=== PATIENT | male | born 1960 | race Caucasian/White ===

== ENCOUNTER 2019-05-22 06:39 | Inpatient (IN) ==
--- NOTE | 2019-05-01 15:57 | PAT Medication Instructions ---
Medication Instructions Date of Service May 01, 2019 Home Medications glucos sul 6MPo-ptq-zbokg-C-Mn 1 tab PO QAM magnesium oxide,aspartate,citr 250 mg PO QAM naksvmceohux-fbr-ieda-FA-vit K 1 tab PO QAM naproxen sodium [Aleve] 220 mg PO BID PRN vitamin B complex 1 cap PO DAILY ASK your surgeon for instructions naproxen sodium [Aleve] 220 mg PO BID PRN STOP taking 2 weeks before surgery (or as soon as possible if surgery is within 2 weeks) glucos sul 3JGn-ama-loyfb-C-Mn 1 tab PO QAM DO NOT take the morning of surgery magnesium oxide,aspartate,citr 250 mg PO QAM rhnxxnyehwyk-hjo-imhs-FA-vit K 1 tab PO QAM vitamin B complex 1 cap PO DAILY Other Notes If you have any questions please call us at [phone] or [phone] or [phone] or [phone]
--- NOTE | 2019-05-02 14:21 | Anesthesiology Consultation ---
Date of Service May 02, 2019 Assessment & Plan (1) Encounter for pre-operative examination: Chart Review Chart Review: Pending: Refer to Additional Notes / Consult section (pending preop testing (labs, EKG, CXR)) and Patient seen in Pre Admission Testing Teaching & Discussion Pre-Anesthesia Teaching/Discussion Notes: Instructed NPO after midnight before surgery,except medications with 15 cc of water. Medication instructions provide d according to the PAT guidelines. History Surgery Operation Date: 05/22/19 09:45 Proposed Procedures p Robotic Assisted Laparoscopic Radical Retropubic Prostatectomy, Possible Open, Possible Pelvic Lymph Node Dissection - Mayur Keating MD Height/Weight Height: 6 ft Weight: 102.1 kg Allergies Allergy/AdvReac Type Severity Reaction Status Date / Time Penicillins Allergy Unknown hives Verified 04/30/19 08:48 tetracycline Allergy Unknown hives Verified 04/30/19 08:48 Medications Home Medications Medication Instructions Recorded Confirmed Last Taken glucos sul 2PTu-spz-jtpqh-C-Mn 1 tab PO QAM 04/20/19 04/30/19 Unknown magnesium oxide,aspartate,citr 250 mg PO QAM 04/20/19 04/30/19 Unknown eqzugzdboree-lcv-shjk-FA-vit K 1 tab PO QAM 04/20/19 04/30/19 Unknown naproxen sodium [Aleve] 220 mg PO BID PRN 04/30/19 04/30/19 Unknown vitamin B complex 1 cap PO DAILY 04/30/19 04/30/19 Unknown Past Medical History Medical History Prostate ca Arthritis Exercise / Class Metabolic Activity II 4-5 Yardwork/Stairs/Walk up hill Past Family History Family History Uncle Prostate cancer Heart disease Father Prostate cancer Brother Prostate cancer Brother Diabetes Unknown Colon cancer Past Surgical History Surgical History S/P rotator cuff repair RIGHT X 2 S/P wisdom tooth extraction S/P sinus surgery Hx of hand surgery TORN TENDON - LEFT HAND Past Anesthesia History No Family Hx of Anesthesia Complications and Other "Slow to wake" with prior surgery. No known hx reintubation. History of PONV No Hx of PONV and No Hx of Motion Sickness Social History Smoking Status: Never smoker Do You Dip or Chew Tobacco: No Hx Alcohol Use: Yes Alcohol type: beer alcohol intake frequency: a few times a month Hx Substance Use: No substance use type: does not use Review of Systems Patient denies chest pain, shortness of breath, dyspnea on exertion, reflux, cough, wheezing, palpitations. Physical Exam Vital Signs VITALS BP 128/76 P 69 TEMP 98.5 SP02 96%RA RESP 18 PHYSICAL Full neck and c-spine range of motion. Full TMJ range of motion. TMD 3 finger breaths Mallampati Score 2 Dentition: intact, crowns on molars, upper front "repaired" tooth Lungs: clear throughout to auscultation Cardiac: regular rate and rhythm, no murmurs noted Spine: normal Carotid arteries: negative bruit Extremities: no edema
[2019-05-02 15:24] LABS: Basophils # (auto) 0.02 K/uL (0-0.2); Basophils % (auto) 0.2 %; Eosinophils # (auto) 0.13 K/uL (0-0.5); Eosinophils % (auto) 1.5 %; Hematocrit (blood only) 43.8 % (42-52); Hemoglobin 15.6 g/dL (14.0-18.0); Immature Granulocytes # (auto) 0.01 K/uL (0.00-0.02); Immature Granulocytes % (auto) 0.1 %; Lymphocytes # (auto) 1.87 K/uL (1.2-3.4); Lymphocytes % (auto) 21.8 %; Mean Corpuscular Hemoglobin 33.3 pg (25-34); Mean Corpuscular Hgb Conc 35.6 g/dL (32-36); Mean Corpuscular Volume 93.4 fL (80-100); Mean Platelet Volume 10.2 fL (7.4-10.4); Monocytes # (auto) 0.67 K/uL (0.11-0.59); Monocytes % (auto) 7.8 %; Neutrophils # (auto) 5.87 K/uL (1.4-6.5); Neutrophils % (auto) 68.6 %; Platelet Count 267 K/uL (130-400); RDW Coefficient of Variation 12.5 % (11.5-14.5); RDW Standard Deviation 42.5 fL (36.4-46.3); Red Blood Count 4.69 M/uL (4.7-6.1); White Blood Count 8.57 K/uL (4.8-10.8)
[2019-05-02 15:31] LABS: BUN Creatinine Ratio 23.5 (10-20); Calcium 8.6 mg/dl (8.5-10.1); Creatinine Clr Calc Pharmacy 79.7 ml/min; Est GFR (Non-African American) 62.2; Potassium 4.3 mmol/L (3.5-5.1)
--- NOTE | 2019-05-02 16:03 | XRay Report ---
XR chest Pre-admission PA/Lat CLINICAL HISTORY: 58 years-old Male presenting with preoperative assessment. TECHNIQUE: PA and lateral views of the chest were obtained. COMPARISON: None. FINDINGS: Cardiac silhouette top normal in size. Lungs and pleural spaces clear. Degenerative changes of the th oracic spine. Upper abdomen normal. IMPRESSION: 1. Borderline cardiomegaly. No other convincing evidence of acute cardiopulmonary disease. Electronically signed by: Delroy Phillips M.D. 05/02/2019 4:01 PM
[~2019-05-22 06:39] MED LIST: CEFAZOLIN 2000MG 2,000 MG/15 ML SYR IV SCH; CLINDAMYCIN 900 MG / 50ML D5W IV SCH; HEPARIN SOD 5,000 UNIT/0.5 ML VIAL SC SCH; LR 15ML/HR IV SCH; [UNRECOGNIZED DRUG - REMARK] SCH
[2019-05-22] MEDS ORDERED: ONDANSETRON INJ 2 MG/ML 2 ML VIAL ONE (06:59)
[2019-05-22] MEDS ORDERED: fentaNYL citrate 100 MCG/2 ML VIAL ONE ×2 (06:59→10:31)
[2019-05-22] MEDS ORDERED: PROPOFOL IV EMULSION 10 MG/ML 20 ML VIAL IV ONE (06:59)
[2019-05-22] MEDS ORDERED: ROCURONIUM BROMIDE 10 MG/ML 5 ML VIAL ONE ×5 (06:59→10:56)
[2019-05-22] MEDS ORDERED: MIDAZOLAM HCL 1 MG/ML 2ML VIAL ONE (06:59)
[2019-05-22] MEDS ORDERED: LARYING-O-JET KIT (LTA) ONE (06:59)
[2019-05-22] MEDS ORDERED: LIDOCAINE HCL 2% 2 ML VIAL/AMP(20MG/ML) INFIL ONE (06:59)
--- NOTE | 2019-05-22 07:12 | History & Physical Bridge Note ---
Date of Service May 22, 2019 History & Physical Bridge Note I have examined the patient, reviewed the History & Physical and in the interval since the performance of the History & Physical I have noted the following changes of clinical significance: no changes noted
[2019-05-22] MEDS ORDERED: BUPIVACAINE 0.5 % 5 MG/1 ML MPF 30ML VIAL ONE (08:36)
[2019-05-22] MEDS ORDERED: ONDANSETRON INJ 2 MG/ML 2 ML VIAL IV PRN ×2 (08:42→13:36)
[2019-05-22] MEDS ORDERED: HYDROmorphone INJ 1 MG/ML SYRINGE IV PRN (08:42)
[2019-05-22] MEDS ORDERED: ePHEDrine sulfate 50 MG/ML AMP IV PRN (08:42)
[2019-05-22] MEDS ORDERED: ATROPINE SULFATE 0.1 MG/ML 10ML SYR IV PRN (08:42)
[2019-05-22] MEDS ORDERED: BELLADONNA/OPIUM SUPP 60 MG SUPP PR ONE ×2 (09:07→10:09)
[2019-05-22] MEDS ORDERED: ACETAMINOPHEN 1000 MG/100 ML IV IV ONE (09:09)
[2019-05-22] MEDS ORDERED: HYDROmorphone INJ 2 MG/ML SYR/VIAL ONE (09:35)
[2019-05-22] MEDS ORDERED: FLOSEAL HEMOSTATIC MATRIX 10ML TOP ONE (11:40)
--- NOTE | 2019-05-22 12:17 | Operative Report ---
PG Post Operative Report Pre & Post Diagnosis Operation Date: 05/22/19 08:05 Pre-Op Diagnosis: Prostate Cancer Post-Op Diagnosis: Prostate Cancer I identified the patient and participated in the time-out.: Yes Procedure Operation Date: 05/22/19 08:05 Actual Procedures p Robotic Assisted Laparoscopic Radical Retropubic Prostatectomy, Bilateral Pelvic Lymph Node Dissection(Not Applicable) - Mayur Keating MD Surgeon Malcolm Keating MD Director Employment Dorene Mccollum Estimated Blood Loss 150 Findings Consistent with Post-Op Diagnosis Specimens 1. Prostate and seminal vesicles 2. Periprostatic fat 3. Left pelvic lymph nodes 4. Right pelvic lymph nodes Description of Procedure The patient was identified in the preoperative holding area, appropriate informed consents were reviewed and completed, and he was transported to the operating suite. Subcutaneous heparin was administered in the pre-operative ho lding area. Upon arrival in the operating suite, he received appropriate antibiotics and general anesthesia. He was positioned in dorsal lithotomy, a B&O suppository was inserted after digital rectal exam, and he was prepped and draped in standard fashion. A Carter catheter was inserted in the sterile field. A Veress needle was passed per umbilicus with uniform insufflation of the abdomen to 15mmHg. He was placed in steep Trendelenburg position. A periumbilical incision was then made to accommodate a 12mm Visiport with 10mm 0degree laparoscope. Inspection of the abdomen was carried out, and there was no evidence of traumatic entry or injury secondary to the Veress needle. After confirming a clear anterior abdominal wall, ports were subsequently placed in standard robotic prostatectomy fashion without incident. To begin the robotic portion of the case, the left lateral aspect of the sigmoid was mobilized off of the left pelvic side wall to allow the pouch of Aristides to be appropriately visualized. He additionally had significant adhesive disease in the right lateral pelvic wall. I was able to gently dissect around the cecum without visualization of the appendix. It appeared that he had a walled off, old phlegmon in this area implying that he may have had a previous episode of appendicitis or colitis that was self-limited. Full inspection of the bowel revealed no evidence of any trauma to the bowel or other abnormalities associated with the bowel aside from an inflammatory response that was adherent to the wall. I then made an incision in the pouch of Aristides, overlying the seminal vesicles. Both SVs as well as the ampullae of the vasa were entirely dissected, with the vasa transected 3cm from the prostate. The medial umbilical ligaments were then controlled with bipolar electrocautery just inferior to the umbilicus. Following cauterization, they were divided utilizing monopolar cautery. A peritoneal incision was carried from this location to the medial aspect of the internal inguinal rings bilaterally with care to avoid opening through the ring. This incision was concluded when the vas deferens was reached. Dissection of the bladder and prostate off of the posterior aspect of the pubic arch was completed allowing full visualization of the prostate. The fat overlying the prostate was removed en bloc and passed off the table as a specimen labeled "periprostatic fat". The endopelvic fascia was cleared during this portion of the procedure, and subsequently opened - first on the right and then the left. The incision through the endopelvic fascia began near the prostate-bladder junction and was carried to the apex with extreme care to preserve all lateral levator musculature as well as the periurethral musculature and sphincter complex. The puboprostatic ligaments were thinned slightly bilaterally before placing a 0-Vicryl figure of 8 stitch around the DVC. The lymph node dissection was then conducted. External iliac vessels were identified on the pelvic side wall. The packet of fat and lymphatic tissue that resides just under the iliac vein was elevated and off of the vein with a split and roll technique. The packet was dissected laterally to the circumflex vein and distally to the obturator nerve which was preserved. The proximal aspect of the packet was carried towards the bifurcation of the iliac vessels. A combination of monopolar and bipolar cautery were used to assist with control. Clips were placed at the proximal and distal aspects of the packet prior to transection. After completing the dissection on both sides, the packets were collected and passed off of the table as specimens labeled "pelvic lymph nodes". My attention then returned to the prostate, with identification of the bladder neck aided by gentle traction on the Carter catheter and lateral to medial pressure at the presumed level of the bladder neck with the robotic instruments. An anterior cystotomy was made, the Carter balloon deflated and the catheter guided through the incision to allow anterior retraction. I attempted to preserve maximal bladder neck musculature as I circumferentially dissected around the bladder neck. After incision through the posterior aspect of the mucosa, the dissection was carried through detrusor muscle until the bilateral ampullae of the vasa were identified. The previously dissected vasa and SVs were brought through the incision and used to elevated the prostate anteriorly. A posterior plane behind the prostate was then developed - splitting Denonvilliers's fascia. This dissection was carried as far as possible towards the apex as well as far as possible laterally. An incision in the lateral prostatic fascia was then made bilaterally to facilitate control of the vascular pedicles. The pedicles were each controlled with a series of Weck clips. The neurovascular bundles were identified with bilateral nerve sparing approach. The apical attachments of the prostate were remaining at that stage. The DVC was divided with bipolar electrocautery. Matilde-prostatic tissue incised with sharp dissection and monopolar cautery. Maximal urethral length was preserved before dividing the urethra sharply. The prostate was entirely freed at that point, and collected in an EndoCatch bag before being moved out of the field of vision. Hemostasis was confirmed and anastomosis of the bladder and urethra was completed utilizing a double armed V- Lock stitch. A new Carter catheter was inserted and the anastomosis tested with irrigation. There was no evidence of leak. FloSeal coagulant was placed around the anastomosis. A Sheila style stitch was placed on the right and left to jackelyn the peritoneum against the area of the prior lymph node dissection, functionally marsupializing this dissection to prevent lymphocele formation. The robot was undocked, the specimen extracted through expansion of the matilde- umbilical camera port. The fascia was closed with a series of 0-PDS figure of 8 stitches. The right assistant city attorney port was closed in two layers - with a figure of 8 0-Vicryl to reapproximate the fascia followed by 4-0 Monocryl to close the skin. Monocryl was used to close all other skin incisions. All wounds were dressed with Dermabond. The case was concluded and the patient taken to the PACU in stable condition. Dorene Mccollum assisted from incision to closure I attest to the content of the Intraoperative Record and any orders documented therein. Any exceptions are noted below.
[2019-05-22] MEDS: fentaNYL citrate 100 MCG/2 ML VIAL IV PRN ×3 (12:30→12:40)
[2019-05-22 13:16] LABS: BUN Creatinine Ratio 15.8 (10-20); Calcium 8.9 mg/dl (8.5-10.1); Creatinine Clr Calc Pharmacy 86.4 ml/min; Est GFR (African American) 81.1; Potassium 5.1 mmol/L (3.5-5.1)
[2019-05-22 13:19] LABS: Basophils # (auto) 0.01 K/uL (0-0.2); Basophils % (auto) 0.1 %; Eosinophils # (auto) 0.01 K/uL (0-0.5); Eosinophils % (auto) 0.1 %; Hematocrit (blood only) 42.7 % (42-52); Hemoglobin 14.8 g/dL (14.0-18.0); Immature Granulocytes # (auto) 0.02 K/uL (0.00-0.02); Immature Granulocytes % (auto) 0.2 %; Lymphocytes # (auto) 0.41 K/uL (1.2-3.4); Lymphocytes % (auto) 4.6 %; Mean Corpuscular Hemoglobin 33.3 pg (25-34); Mean Platelet Volume 10.1 fL (7.4-10.4); Monocytes # (auto) 0.18 K/uL (0.11-0.59); Neutrophils # (auto) 8.22 K/uL (1.4-6.5); Platelet Count 264 K/uL (130-400); RDW Coefficient of Variation 12.8 % (11.5-14.5); RDW Standard Deviation 44.8 fL (36.4-46.3); Red Blood Count 4.45 M/uL (4.7-6.1); White Blood Count 8.85 K/uL (4.8-10.8)
[2019-05-22 13:26] LABS: Mean Corpuscular Hgb Conc 34.7 g/dL (32-36)
[2019-05-22] MEDS ORDERED: OXYCODONE HCL IR 5 MG TAB (IMMEDIATE RELEASE) PO PRN ×2 (13:36)
[2019-05-22] MEDS ORDERED: LACTATED RINGER'S 1,000 ML IV SCH (13:36)
[2019-05-22] MEDS ORDERED: MoRPHine SULFATE 4 MG/ML 1 ML CARP\\VIAL IV PRN (13:36)
[2019-05-22] MEDS ORDERED: ACETAMINOPHEN 1,000 MG/100 ML VIAL IV PRN (13:36)
--- NOTE | 2019-05-22 16:04 | Anesthesiology Progress Note ---
Date of Service May 22, 2019 Anesthesia Post Procedure Vital Signs Vital Signs: Temp Pulse Pulse Resp BP BP Pulse Ox 05/22/19 15:10 36.6 C 16 164/79 H 96 05/22/19 14:08 74 16 148/77 H 96 05/22/19 13:35 64 16 134/78 96 05/22/19 12:55 71 16 158/86 H 97 05/22/19 12:45 36.5 C 65 16 156/88 H 96 05/22/19 12:35 65 16 175/82 H 98 05/22/19 12:25 62 16 146/85 H 99 05/22/19 12:16 36.3 C L 70 14 156/98 H 100 05/22/19 07:08 36.7 C 76 18 160/89 H 96 Pain Intensity Abdomen: Pain Intensity: 3 Transfer of Care Handoff Completed per policy Notes Mental Status: alert / awake / arousable and participated in evaluation Patient Amnestic to Procedure: Yes Nausea / Vomiting: adequately controlled Pain: adequately controlled Airway Patency, RR, SpO2: stable & adequate BP & HR: stable & adequate Hydration State: stable & adequate Anesthetic Complications: no major complications apparent and Pt Satisfied with anesthetic care
[2019-05-22] MEDS: LACTATED RINGER'S 1,000 ML IV SCH (17:51)
[2019-05-22] MEDS: DOCUSATE SODIUM 100 MG CAP PO SCH (20:59)
[2019-05-22] MEDS: HEPARIN SOD 5,000 UNIT/0.5 ML VIAL SQ SCH (21:00)
[2019-05-22] MEDS: CLINDAMYCIN 600 MG in DEXTROSE 5% 50 ML IV SCH (21:01)
[2019-05-22] MEDS: FAMOTIDINE 20 MG in SYRINGE 3 ML IV SCH (21:01)
[2019-05-23] MEDS: LACTATED RINGER'S 1,000 ML IV SCH (02:25)
[2019-05-23] MEDS: CLINDAMYCIN 600 MG in DEXTROSE 5% 50 ML IV SCH ×2 (05:11→13:29)
[2019-05-23 06:53] LABS: Basophils # (auto) 0.01 K/uL (0-0.2); Basophils % (auto) 0.1 %; Eosinophils # (auto) 0.04 K/uL (0-0.5); Eosinophils % (auto) 0.4 %; Hematocrit (blood only) 37.4 % (42-52); Hemoglobin 12.8 g/dL (14.0-18.0); Immature Granulocytes # (auto) 0.01 K/uL (0.00-0.02); Immature Granulocytes % (auto) 0.1 %; Lymphocytes # (auto) 1.75 K/uL (1.2-3.4); Lymphocytes % (auto) 19.1 %; Mean Corpuscular Hemoglobin 32.7 pg (25-34); Mean Corpuscular Hgb Conc 34.2 g/dL (32-36); Mean Corpuscular Volume 95.7 fL (80-100); Mean Platelet Volume 10.2 fL (7.4-10.4); Monocytes # (auto) 0.93 K/uL (0.11-0.59); Monocytes % (auto) 10.1 %; Neutrophils # (auto) 6.43 K/uL (1.4-6.5); Neutrophils % (auto) 70.2 %; Platelet Count 262 K/uL (130-400); RDW Standard Deviation 44.8 fL (36.4-46.3); Red Blood Count 3.91 M/uL (4.7-6.1); White Blood Count 9.17 K/uL (4.8-10.8)
[2019-05-23 07:13] LABS: BUN Creatinine Ratio 12.6 (10-20); Calcium 8.5 mg/dl (8.5-10.1); Creatinine Clr Calc Pharmacy 107.7 ml/min; Est GFR (Non-African American) 91.4; Potassium 3.7 mmol/L (3.5-5.1)
[2019-05-23] MEDS ORDERED: KETOROLAC TROMETHAMINE 15 MG/ML VIAL IV PRN (07:22)
--- NOTE | 2019-05-23 08:16 | Anesthesiology Progress Note ---
Date of Service May 23, 2019 Anesthesia Post Procedure Vital Signs Vital Signs: Temp Pulse Pulse Resp BP BP Pulse Ox 05/23/19 03:52 36.6 C 57 L 16 119/71 96 05/22/19 23:25 36.9 C 57 L 16 130/73 96 05/22/19 19:13 36.4 C L 63 16 144/75 H 94 05/22/19 16:07 36.5 C 60 16 137/78 96 05/22/19 15:10 36.6 C 16 164/79 H 96 05/22/19 14:08 74 16 148/77 H 96 05/22/19 13:35 64 16 134/78 96 05/22/19 12:55 71 16 158/86 H 97 05/22/19 12:45 36.5 C 65 16 156/88 H 96 05/22/19 12:35 65 16 175/82 H 98 05/22/19 12:25 62 16 146/85 H 99 05/22/19 12:16 36.3 C L 70 14 156/98 H 100 Pain Intensity Abdomen: Pain Intensity: 2 Notes Mental Status: alert / awake / arousable Patient Amnestic to Procedure: Yes Nausea / Vomiting: adequately controlled Pain: adequately controlled Airway Patency, RR, SpO2: stable & adequate BP & HR: stable & adequate Hydration State: stable & adequate Anesthetic Complications: no major complications apparent and Pt Satisfied with anesthetic care
[2019-05-23] MEDS: DOCUSATE SODIUM 100 MG CAP PO SCH (08:47)
[2019-05-23] MEDS: HEPARIN SOD 5,000 UNIT/0.5 ML VIAL SQ SCH (08:47)
[2019-05-23] MEDS: FAMOTIDINE 20 MG in SYRINGE 3 ML IV SCH (08:52)
[2019-05-23] MEDS ORDERED: VITAMIN B COMPLEX TAB PO SCH (09:00)
[2019-05-23] MEDS ORDERED: CEROVITE ADV FORMULA TAB PO SCH (09:00)
[2019-05-23] MEDS ORDERED: MAGNESIUM OXIDE 400 MG TAB PO SCH (09:00)
--- NOTE | 2019-05-23 10:16 | Urology Progress Note ---
Date of Service May 23, 2019 Assessment & Plan (1) Prostate ca: Postop day #1 status post robotic prostatectomy Advance diet slowly Continue ambulation DC IV fluids Potential DC home later today if he continues to progress appropriately Subjective Doing very well on postop day #1 status post prostatectomy He has been ambulatory He has minimal pain of his abdomen, his urine is clear, he is not nauseated, tolerating clears Physical Exam Physical Exam: Incisions appropriate, urine clear Results & Data Vital Signs (Past 12 Hours) Vital Signs Temp Pulse Resp BP Pulse Ox 05/23/19 07:50 36.8 C 50 L 16 125/69 95 05/23/19 03:52 36.6 C 57 L 16 119/71 96 05/22/19 23:25 36.9 C 57 L 16 130/73 96 PG Care Time/CCT Total # of Minutes Spent Total Time Spent with Patient: Total time spent is greater than 50% in coordination of care (as documented) at patient's floor/unit and/or counseling patient:
--- NOTE | 2019-06-01 07:29 | Discharge Summary ---
Date of Service June 01, 2019 Admission HPI Per Admitting Provider Presenting for prostate cancer treatment Principal Diagnosis prostate cancer Discharge Data Allergies Allergy/AdvReac Type Severity Reaction Status Date / Time Penicillins Allergy Unknown hives Verified 05/22/19 07:04 tetracycline Allergy Unknown hives Verified 05/22/19 07:04 Procedures Performed Operation Date: 05/22/19 08:05 Actual Procedures p Robotic Assisted Laparoscopic Radical Retropubic Prostatectomy, Bilateral Pelvic Lymph Node Dissection(Not Applicable) - Mayur Keating MD Hospital Course (1) Prostate ca: Patient admitted for a robotic prostatectomy - details of the procedure as dictated previously in my operative report - in summary, he tolerated the procedure very well - he was in stable condition overnight with appropriate urine output and stable labs - he was subsequently discharged home with a goyal catheter - he was in stable condition at the time of discharge Total Time Total Time Spent Total Time Spent (In Minutes): 25 Total Time Includes: Examination of the Patient, Discharge Planning and Medication Reconciliation Discharge Plan Discharge Items Patient Disposition: Home - Self-Care Reason For Visit: Prostate Cancer Discharge Diagnosis: Prostate cancer Activity: Per Instructions section Lifting: No more than 10 pounds Bathing Comment: Okay to shower tomorrow. Do not scrub/pick surgical glue. No soaking in tub Sexual Activity: Wait until after follow-up appointment Exercise/Sports: None Exercise Comment: Walking and stairs in your home are okay. Driving/Machine Use: Not while taking pain medication. Non-emergency contact: Urologist Call non-emergency contact if: you have any medication questions, your pain is concerning for you, your temperature is above 101, your wound has increased redness, your wound has increased drainage and your wound pain has increased Follow-up/Referrals: Theodore Miles MD [Primary Care Provider] - Diet: Regular Addtl Attending Provider Instructions: Please keep all follow up appointment's at Urology office as scheduled. Call office at [phone] if any questions or concerns. Antibiotic (Bactrim)- begin taking this one day prior to your catheter removal and finish completely as prescribed. Bowels - take stool softener (Colace) twice daily x 2 weeks, then as needed for constipation. Pain - take Tylenol per dosing instructions on bottle for mild pain. Take pain medication (Oxycodone) as needed for moderate/severe pain. Goyal - clean twice daily with mild soap and water. Call office right away if catheter is not draining, or if it gets pulled or displaced for any reason. Pending Studies at Discharge: Yes Studies:: Pathology Stand-Alone Forms: My [facility], Opioid Pain Management, Smoking Cessation Medications and DC Order Prescriptions: New docusate sodium [Colace] 100 mg capsule 100 mg PO BID PRN (Reason: constipation) Qty: 60 RF: 0 oxycodone 5 mg tablet 5 mg PO Q6H PRN (Reason: pain) Qty: 14 RF: 0 Continued plcpoqfbxqoa-dpb-gdpu-FA-vit K 1 tab PO QAM RF: 0 glucos sul 6PEz-ziq-gpknb-C-Mn 1 tab PO QAM RF: 0 magnesium oxide,aspartate,citr 250 mg PO QAM RF: 0 vitamin B complex Capsule 1 cap PO DAILY RF: 0 Discontinued naproxen sodium [Aleve] 220 mg Capsule 220 mg PO BID PRN (Reason: Pain) RF: 0 Discharge Orders: Discharge Order (Routine); Ordered 05/23/19 Ordered By: Dorene Nair/Other Patient Handouts: Leg Bag Care Dc Admission Data Admit Date/Time: 05/22/19 13:25 Attending Provider: Mayur Keating Admit Provider: Mayur Keating Primary Care Provider: Theodore Miles Other Interventions: Discharge Summary Assessment (RN) Last Done: 05/23/19 13:52 DC Date/Time DO NOT enter until pt leaves facility: 05/23/19 14:39
== END 2019-05-23 14:39 | disposition home or self-care (01) | DRG 708 ==
LOC: ASU 06:39 → 3N 13:25